=== PATIENT | male | born 1960 | race Asian ===

== ENCOUNTER 2017-06-17 11:32 | Outpatient (CLI) | payer BC ==
[2017-06-17 12:43] LABS: PLATELET COUNT 188 K/uL (142-355)
[2017-06-17 13:05] LABS: POTASSIUM 3.6 mmol/L (3.6-5.2)
== END 2017-06-17 19:07 | disposition home or self-care (01) ==
LOC: LABW 11:32
PROVIDERS: Internal Medicine
DX: N18.3 Chronic kidney disease, stage 3 (moderate) (principal); R79.89 Other specified abnormal findings of blood chemistry
CPT/HCPCS: 36415; 80053; 81000; 82024; 82043; 82088; 82306; 82330; 82570; 82607; 82746; 83036; 83735; 83835; 83970; 84100; 84155; 84244; 84439; 84443; 84550; 85027; 86430

== ENCOUNTER 2017-12-30 09:03 | Outpatient (CLI) | payer BC | END 2017-12-30 23:47 | disposition home or self-care (01) | LOC: NM 09:03 | DX: K81.9 Cholecystitis, unspecified (principal) | CPT/HCPCS: A9537 ==

== ENCOUNTER 2018-01-02 05:48 | Inpatient (IN) | payer BC ==
[~2018-01-02] VITALS: Ht 188 cm; Wt 101.7 kg
[2018-01-02 05:52] VITALS: BP 116/63; TEMP 98.1
[2018-01-02] MEDS ORDERED: AZOR1 TA1 PO (06:00)
[2018-01-02] MEDS ORDERED: RANI150T78 PO (06:00)
[2018-01-02] MEDS ORDERED: ELIQUIS5 MG PO (06:01)
[2018-01-02] MEDS ORDERED: ZOFRAN ODT4 MG OR (06:02)
[2018-01-02] MEDS ORDERED: LABETALOL200 MG PO (06:03)
[2018-01-02] MEDS ORDERED: CARDIZEM60 MG PO (06:03)
[2018-01-02 07:08] LABS: PLATELET COUNT 168 K/uL (142-355)
[2018-01-02 07:23] LABS: POTASSIUM 4.2 mmol/L (3.6-5.2)
[2018-01-02 08:30] VITALS: BP 120/78
[2018-01-02 10:50] VITALS: BP 125/84
[2018-01-02 16:59] VITALS: BP 146/87; TEMP 98.6; Ht 188 cm; Wt 101.7 kg
[2018-01-02 20:00] VITALS: BP 155/85; TEMP 102.6
[2018-01-03 01:00] VITALS: BP 127/68; TEMP 98.2
[2018-01-03 04:00] VITALS: BP 151/85; TEMP 99.2
[2018-01-03 05:31] LABS: PLATELET COUNT 151 K/uL (142-355)
[2018-01-03 08:01] VITALS: BP 161/82; TEMP 99.8
[2018-01-03 12:06] VITALS: BP 144/88; TEMP 99.5
[2018-01-03 16:00] VITALS: BP 150/90; TEMP 99.8
[2018-01-03 20:05] VITALS: BP 183/106; TEMP 98.4
[2018-01-04] VITALS: BP 153/88; TEMP 98.7
[2018-01-04 04:00] VITALS: BP 170/96; TEMP 98.5
[2018-01-04 08:02] VITALS: BP 165/95; TEMP 98.5
[2018-01-04 12:00] VITALS: BP 158/91; TEMP 98.6
[2018-01-04 15:46] VITALS: BP 159/99; TEMP 98.2
[2018-01-04 20:05] VITALS: BP 151/91; TEMP 99.2
[2018-01-05 00:27] VITALS: BP 167/103; TEMP 98.8
[2018-01-05 04:00] VITALS: BP 173/110; TEMP 98.2
[2018-01-05 08:07] VITALS: BP 157/101; BP 157/161; TEMP 98.1
[2018-01-05 12:00] VITALS: BP 146/91; TEMP 98.6
[2018-01-05 16:00] VITALS: BP 185/92; TEMP 98.5
[2018-01-05 20:00] VITALS: BP 156/97; TEMP 99.3
[2018-01-06] VITALS: BP 170/96; TEMP 99.1
[2018-01-06 04:00] VITALS: BP 161/95; TEMP 98.4
[2018-01-06 08:00] VITALS: BP 164/102; TEMP 98.7
[2018-01-06 12:00] VITALS: BP 132/84; TEMP 98.4
[2018-01-06 14:07] LABS: PLATELET COUNT 246 K/uL (142-355)
[2018-01-06 14:32] LABS: POTASSIUM 4.1 mmol/L (3.6-5.2)
--- NOTE | 2018-01-06 15:38 | NUR ---
1500 DR BRIGHT NOTIFED CONCERNING BLOOD CULTURE RESULTS AND IV THREAPY. PER DR BRIGHT PT STILL NEEDS OUT PT INFUSION PREVIOUSLY INSTRUCTED. PT'S ABX INFUSION COMPLETED. IV DC'D AND ROUTINE SITE CARE GIVEN.
== END 2018-01-06 17:15 | disposition home or self-care (01) | DRG 872 ==
LOC: ED 05:48 → MED/SURG 11:00
PROVIDERS: Internal Medicine; ADMIT Emergency Medicine
DX: A41.89 Other specified sepsis (principal); A04.72 Enterocolitis due to Clostridium difficile, not specified as recurrent; E87.1 Hypo-osmolality and hyponatremia; N18.4 Chronic kidney disease, stage 4 (severe); E86.0 Dehydration; D72.828 Other elevated white blood cell count; I48.91 Unspecified atrial fibrillation; I10 Essential (primary) hypertension; I12.9 Hypertensive chronic kidney disease with stage 1 through stage 4 chronic kidney disease, or unspecified chronic kidney disease; D64.89 Other specified anemias
CPT/HCPCS: 36415; 80053; 81000; 85027; 87015; 87040; 87045; 87077; 87186; 87205; 87324; 87328; 87329; 87449; 87899; 96360; 96361; 99284; J0696; J1956; J2185

== ENCOUNTER 2018-01-06 21:08 | Outpatient (CLI) | payer BC ==
[~2018-01-06 21:08] MED LIST: AZOR1 TA1 PO; CARDIZEM60 MG PO; ELIQUIS5 MG PO; LABETALOL200 MG PO; RANI150T78 PO; ZOFRAN ODT4 MG OR
== END 2018-01-06 23:35 | disposition home or self-care (01) ==
LOC: INF 21:08
DX: J15.0 Pneumonia due to Klebsiella pneumoniae (principal)
CPT/HCPCS: 96365

== ENCOUNTER 2018-01-07 08:07 | Outpatient (CLI) | payer BC ==
[~2018-01-07] VITALS: Ht 188 cm; Wt 100.7 kg
== END 2018-01-07 19:23 | disposition home or self-care (01) ==
LOC: INF 08:07
DX: J15.0 Pneumonia due to Klebsiella pneumoniae (principal); N17.9 Acute kidney failure, unspecified
CPT/HCPCS: 96365; 96366; J2185

== ENCOUNTER 2018-01-08 08:24 | Outpatient (CLI) | payer BC | END 2018-01-08 23:17 | disposition home or self-care (01) | LOC: INF 08:24 | DX: J15.0 Pneumonia due to Klebsiella pneumoniae (principal); N17.9 Acute kidney failure, unspecified | CPT/HCPCS: 96365; 96366; J2185 ==

== ENCOUNTER 2018-01-09 07:41 | Outpatient (CLI) | payer BC | END 2018-01-09 23:23 | disposition home or self-care (01) | LOC: INF 07:41 | DX: J15.0 Pneumonia due to Klebsiella pneumoniae (principal); N17.9 Acute kidney failure, unspecified | CPT/HCPCS: 96365; 96366; J2185 ==

== ENCOUNTER 2018-01-10 07:50 | Outpatient (CLI) | payer BC | END 2018-01-10 23:20 | disposition home or self-care (01) | LOC: INF 07:50 | DX: J15.0 Pneumonia due to Klebsiella pneumoniae (principal); N17.9 Acute kidney failure, unspecified | CPT/HCPCS: 96365; 96366; J2185 ==

== ENCOUNTER 2018-09-03 16:24 | Outpatient (CLI) | payer BC | END 2018-09-03 19:44 | disposition home or self-care (01) | LOC: LABW 16:24 | DX: R19.7 Diarrhea, unspecified (principal) | CPT/HCPCS: 87015; 87045; 87324; 87449; 87899 ==

== ENCOUNTER 2019-01-25 05:39 | Inpatient (IN) | payer BC ==
[2019-01-25] VITALS (11 sets, daily range): BP systolic 138–192; BP diastolic 82–104; TEMP 97.8–101; Ht 188 cm; Wt 112.9 kg
[~2019-01-25] VITALS: Ht 188 cm; Wt 112.9 kg
[2019-01-25] MEDS ORDERED: ONDA4TAB3 PO (05:59)
[2019-01-25] MEDS ORDERED: METR250T19 PO (06:00)
[2019-01-25] MEDS ORDERED: VANCOMYCIN500 MG PO (06:00)
[2019-01-25 06:26] LABS: PLATELET COUNT 299 K/uL (142-355)
[2019-01-25 06:41] LABS: SODIUM 134 mmol/L (136-145)
[2019-01-25 07:07] LABS: PARTIAL THROMBOPLASTIN TIME 38.1 SECONDS (24.5-33.6)
[2019-01-26 04:00] VITALS: BP 162/100; TEMP 98.3
[2019-01-26 05:13] LABS: PLATELET COUNT 314 K/uL (142-355)
[2019-01-26 05:25] LABS: POTASSIUM 3.6 mmol/L (3.6-5.2)
[2019-01-26 08:00] VITALS: BP 179/110; TEMP 98.5
[2019-01-26 12:00] VITALS: BP 124/85; TEMP 98.4
[2019-01-26 16:00] VITALS: BP 151/93; TEMP 98.3
[2019-01-26 20:00] VITALS: BP 171/103; TEMP 98.3
[2019-01-26 23:59] LABS: PLATELET COUNT 400 K/uL (142-355)
[2019-01-27] VITALS: BP 174/99; TEMP 101.3
[2019-01-27 00:26] LABS: POTASSIUM 4.7 mmol/L (3.6-5.2)
[2019-01-27 04:00] VITALS: BP 152/97; TEMP 98.1
[2019-01-27 08:00] VITALS: BP 155/84; TEMP 98
== END 2019-01-27 19:33 | disposition home or self-care (01) | DRG 683 ==
LOC: ED 05:39 → MED/SURG 07:00
PROVIDERS: Hospitalist; ADMIT Internal Medicine
DX: N17.8 Other acute kidney failure (principal); A04.72 Enterocolitis due to Clostridium difficile, not specified as recurrent; J98.11 Atelectasis; Q61.3 Polycystic kidney, unspecified; I13.0 Hypertensive heart and chronic kidney disease with heart failure and stage 1 through stage 4 chronic kidney disease, or unspecified chronic kidney disease; D72.828 Other elevated white blood cell count; N18.3 Chronic kidney disease, stage 3 (moderate); I48.2 Chronic atrial fibrillation; Z79.01 Long term (current) use of anticoagulants; I50.9 Heart failure, unspecified
CPT/HCPCS: 36415; 36600; 80048; 80053; 82550; 82805; 83880; 84484; 85027; 85379; 85610; 85730; 87040; 87502; 87651; 87899; 93005; 94640; 94664; 94760; 96360; 96361; 96365; 96366; 96367; 96372; 99284; J1956; A9540; A9567; J0456; J1650; J1940; J3370

== ENCOUNTER 2019-02-10 09:59 | Outpatient (CLI) | payer BC ==
[~2019-02-10 09:59] MED LIST changes: +METR250T19 PO; +ONDA4TAB3 PO; +VANCOMYCIN500 MG PO
== END 2019-02-10 22:55 | disposition home or self-care (01) ==
LOC: RESP 09:59
DX: R05 Cough (principal); I10 Essential (primary) hypertension; R06.02 Shortness of breath; Q61.3 Polycystic kidney, unspecified
CPT/HCPCS: 93306

== ENCOUNTER 2019-02-25 12:54 | Outpatient (CLI) | payer BC | END 2019-02-25 23:31 | disposition home or self-care (01) | LOC: NM 12:54 | DX: R10.13 Epigastric pain (principal) | CPT/HCPCS: A9537 ==

== ENCOUNTER 2019-03-04 11:00 | Outpatient (CLI) | payer BC ==
[2019-03-04 11:34] LABS: POTASSIUM 3.8 mmol/L (3.6-5.2)
== END 2019-03-04 20:38 | disposition home or self-care (01) ==
LOC: LABW 11:00
PROVIDERS: Internal Medicine
DX: N18.3 Chronic kidney disease, stage 3 (moderate) (principal)
CPT/HCPCS: 36415; 80053; 81000; 82306; 82330; 82570; 83735; 83970; 84100; 84155; 85027

== ENCOUNTER 2019-03-15 15:52 | Outpatient (CLI) | payer BC ==
[2019-03-15 16:09] LABS: PLATELET COUNT 196 K/uL (142-355)
== END 2019-03-15 19:19 | disposition home or self-care (01) ==
LOC: LAB 15:52
PROVIDERS: Internal Medicine
DX: N18.3 Chronic kidney disease, stage 3 (moderate) (principal)
CPT/HCPCS: 85027

== ENCOUNTER 2019-06-28 04:21 | Emergency (ER) | payer BC ==
[~2019-06-28] VITALS: Ht 188 cm; Wt 112.9 kg
[2019-06-28 05:44] LABS: PLATELET COUNT 168 K/uL (142-355)
[2019-06-28 05:53] LABS: POTASSIUM 3.4 mmol/L (3.6-5.2)
[2019-06-28 06:05] VITALS: BP 148/94; TEMP 98.8
== END 2019-06-28 06:05 | disposition home or self-care (01) ==
LOC: ED 04:21
PROVIDERS: Hospitalist
DX: J40 Bronchitis, not specified as acute or chronic (principal)
CPT/HCPCS: 36415; 80048; 85027; 87502; 87651; 99282; 99283

== ENCOUNTER 2019-09-14 10:01 | Outpatient (CLI) | payer BC ==
[2019-09-14 10:46] LABS: PLATELET COUNT 133 K/uL (142-355)
[2019-09-14 11:04] LABS: POTASSIUM 3.6 mmol/L (3.6-5.2)
== END 2019-09-14 22:22 | disposition home or self-care (01) ==
LOC: LABW 10:01
PROVIDERS: Internal Medicine
DX: I12.9 Hypertensive chronic kidney disease with stage 1 through stage 4 chronic kidney disease, or unspecified chronic kidney disease (principal); N18.3 Chronic kidney disease, stage 3 (moderate)
CPT/HCPCS: 36415; 80053; 81000; 82024; 82088; 82306; 82330; 82533; 82570; 83735; 83835; 83970; 84100; 84155; 84244; 84436; 84443; 85027

== ENCOUNTER 2020-02-17 08:32 | Outpatient (CLI) | payer BC | END 2020-02-17 22:13 | disposition home or self-care (01) | LOC: US 08:32 | DX: R10.13 Epigastric pain (principal); R10.9 Unspecified abdominal pain; R19.00 Intra-abdominal and pelvic swelling, mass and lump, unspecified site ==

== ENCOUNTER 2020-03-07 08:53 | Outpatient (CLI) | payer BC | END 2020-03-07 23:30 | disposition home or self-care (01) | LOC: CT 08:53 | DX: R10.13 Epigastric pain (principal); K52.9 Noninfective gastroenteritis and colitis, unspecified; K21.9 Gastro-esophageal reflux disease without esophagitis | CPT/HCPCS: 36415; 82565; 84520 ==

== ENCOUNTER 2020-03-31 08:58 | Outpatient (CLI) | payer BC ==
[2020-03-31 09:26] LABS: PLATELET COUNT 266 K/uL (142-355)
== END 2020-03-31 19:32 | disposition home or self-care (01) ==
LOC: LABW 08:58
PROVIDERS: ATTEND Internal Medicine Gastroenterology
DX: R93.2 Abnormal findings on diagnostic imaging of liver and biliary tract (principal)
CPT/HCPCS: 36415; 80053; 80074; 82103; 82172; 82247; 82248; 82390; 82465; 82525; 82728; 82947; 82977; 83010; 83516; 83540; 83550; 83883; 84450; 84460; 84466; 84478; 85027; 85610; 86038

== ENCOUNTER 2020-05-16 12:18 | Outpatient (CLI) | payer BC ==
[2020-05-16 12:48] LABS: PLATELET COUNT 426 K/uL (142-355)
[2020-05-16 13:08] LABS: POTASSIUM 4.2 mmol/L (3.6-5.2)
== END 2020-05-16 21:56 | disposition home or self-care (01) ==
LOC: LABW 12:18
PROVIDERS: ATTEND Nurse Practitioner
DX: N18.30 Chronic kidney disease, stage 3 unspecified (principal)
CPT/HCPCS: 36415; 80053; 81000; 82306; 82330; 82570; 83735; 83970; 84100; 84155; 85027

== ENCOUNTER 2020-07-12 10:11 | Outpatient (CLI) | payer BC, OTHER | END 2020-07-12 19:54 | disposition home or self-care (01) | LOC: INF 10:11 | PROVIDERS: ATTEND Internal Medicine | DX: Z23 Encounter for immunization (principal) | CPT/HCPCS: 96372 ==

== ENCOUNTER 2020-08-01 11:01 | Outpatient (CLI) | payer BC, OTHER | END 2020-08-01 21:14 | disposition home or self-care (01) | LOC: INF 11:01 | PROVIDERS: ATTEND Internal Medicine | DX: Z23 Encounter for immunization (principal) | CPT/HCPCS: 96372 ==

== ENCOUNTER 2020-08-02 10:46 | Outpatient (CLI) | payer BC ==
[2020-08-02 11:04] LABS: PLATELET COUNT 229 K/uL (142-355)
[2020-08-02 11:17] LABS: POTASSIUM 3.9 mmol/L (3.6-5.2)
== END 2020-08-02 22:42 | disposition home or self-care (01) ==
LOC: LABW 10:46
PROVIDERS: ATTEND Internal Medicine Gastroenterology
DX: K76.0 Fatty (change of) liver, not elsewhere classified (principal)
CPT/HCPCS: 36415; 80053; 85027

== ENCOUNTER 2020-11-09 13:31 | Outpatient (CLI) | payer BC ==
[2020-11-09 13:58] LABS: PLATELET COUNT 489 K/uL (142-355)
[2020-11-09 14:20] LABS: POTASSIUM 4.7 mmol/L (3.6-5.2)
== END 2020-11-09 19:49 | disposition home or self-care (01) ==
LOC: LABW 13:31
PROVIDERS: ATTEND Internal Medicine Gastroenterology
DX: K76.0 Fatty (change of) liver, not elsewhere classified (principal)
CPT/HCPCS: 36415; 80053; 85027

== ENCOUNTER 2020-11-17 11:34 | Outpatient (CLI) | payer BC | END 2020-11-17 22:51 | disposition home or self-care (01) | LOC: LABW 11:34 | PROVIDERS: ATTEND Internal Medicine Gastroenterology | DX: D50.9 Iron deficiency anemia, unspecified (principal) | CPT/HCPCS: 36415; 82728; 82746; 83540; 83550; 85044 ==

== ENCOUNTER 2020-11-29 10:17 | Day surgery (SDC) | payer BC ==
[~2020-11-29] VITALS: Ht 30.5 cm; Wt 0.5 kg
== END 2020-11-29 12:24 | disposition home or self-care (01) ==
LOC: OR 10:17
PROVIDERS: ATTEND Internal Medicine Gastroenterology
PROC: 0DJD8ZZ Inspection of Lower Intestinal Tract, Via Natural or Artificial Opening Endoscopic (ICD-10-PCS; principal; 2020-11-29)
DX: K57.30 Diverticulosis of large intestine without perforation or abscess without bleeding (principal); K64.8 Other hemorrhoids; D50.8 Other iron deficiency anemias; Z12.11 Encounter for screening for malignant neoplasm of colon; R10.84 Generalized abdominal pain; Z20.822 Contact with and (suspected) exposure to COVID-19
CPT/HCPCS: 87635; J2001; J2704; U0003

== ENCOUNTER → 2020-12-14 | Outpatient (CLI) | payer BC ==
[2020-12-14 14:06] LABS: PLATELET COUNT 419 K/uL (142-355)
[2020-12-14 14:13] LABS: POTASSIUM 3.8 mmol/L (3.6-5.2)
== END ==
LOC: LABW 13:30 → OR 13:30 → EDSTATUS 12-20 15:00
PROVIDERS: ATTEND Internal Medicine Gastroenterology
DX: D50.9 Iron deficiency anemia, unspecified (principal); K21.9 Gastro-esophageal reflux disease without esophagitis; R11.0 Nausea; Z01.812 Encounter for preprocedural laboratory examination
CPT/HCPCS: 80053; 85027; 87635; U0003

== ENCOUNTER 2021-03-21 10:15 | Outpatient (CLI) | payer BC ==
[2021-03-21 11:12] LABS: PLATELET COUNT 222 K/uL (142-355)
[2021-03-21 11:38] LABS: POTASSIUM 4.2 mmol/L (3.6-5.2)
== END 2021-03-21 20:38 | disposition home or self-care (01) ==
LOC: LABW 10:15
PROVIDERS: ATTEND Internal Medicine
DX: N18.30 Chronic kidney disease, stage 3 unspecified (principal); D50.9 Iron deficiency anemia, unspecified
CPT/HCPCS: 36415; 80053; 81000; 82043; 82306; 82330; 82570; 82607; 82728; 82746; 83540; 83550; 83735; 83970; 84100; 85027

== ENCOUNTER 2021-03-22 16:53 | Inpatient (IN) | payer BC ==
[~2021-03-22] VITALS: Ht 188 cm; Wt 107.6 kg
[2021-03-22 17:07] VITALS: BP 96/54; TEMP 100.8
[2021-03-22 17:59] LABS: PLATELET COUNT 192 K/uL (142-355)
[2021-03-22 18:09] LABS: PARTIAL THROMBOPLASTIN TIME 60.8 SECONDS (24.5-33.6); POTASSIUM 4.3 mmol/L (3.6-5.2)
[2021-03-23] VITALS (8 sets, daily range): BP systolic 111–158; BP diastolic 59–90; TEMP 98.9–100.9; Ht 188 cm; Wt 107.6 kg
[2021-03-23 04:19] LABS: PLATELET COUNT 153 K/uL (142-355)
[2021-03-23 04:21] LABS: POTASSIUM 4.4 mmol/L (3.6-5.2)
[2021-03-23] MEDS ORDERED: DILT-XR240 MG PO (09:49)
[2021-03-23] MEDS ORDERED: MONTELUKAST SOD10 MG PO (09:50)
[2021-03-23] MEDS ORDERED: FLUTICASON50 MCG/AC1 NAS (09:52)
[2021-03-23] MEDS ORDERED: FERROUS SULF325 MG PO (09:53)
[2021-03-23] MEDS ORDERED: DOK100 MG PO (09:53)
[2021-03-24] VITALS (7 sets, daily range): BP systolic 138–189; BP diastolic 76–100; TEMP 98.4–100.9
[2021-03-24 09:11] LABS: PLATELET COUNT 207 K/uL (142-355)
[2021-03-25 04:03] VITALS: BP 123/69; TEMP 99.4
[2021-03-25 04:54] LABS: PLATELET COUNT 213 K/uL (142-355)
[2021-03-25 05:00] LABS: POTASSIUM 4.2 mmol/L (3.6-5.2)
[2021-03-25 08:00] VITALS: BP 125/77; TEMP 98.5
[2021-03-25 12:00] VITALS: BP 135/73; TEMP 98.3
[2021-03-25 16:00] VITALS: BP 130/58; TEMP 99.6
[2021-03-25 20:00] VITALS: BP 134/73; TEMP 98.6
[2021-03-26] VITALS: BP 147/76; TEMP 100.1
[2021-03-26 04:00] VITALS: BP 123/60; TEMP 98.7
[2021-03-26 04:45] LABS: PLATELET COUNT 253 K/uL (142-355)
[2021-03-26 05:25] LABS: POTASSIUM 4.2 mmol/L (3.6-5.2)
[2021-03-26 08:00] VITALS: BP 135/80; TEMP 97.9
== END 2021-03-26 14:30 | disposition home or self-care (01) | DRG 683 ==
LOC: ED 16:53 → MED/SURG 21:27
PROVIDERS: ADMIT Emergency Medicine; ATTEND Internal Medicine Endocrinology, Diabetes & Metabolism
DX: I12.9 Hypertensive chronic kidney disease with stage 1 through stage 4 chronic kidney disease, or unspecified chronic kidney disease (principal); N17.8 Other acute kidney failure; Q61.3 Polycystic kidney, unspecified; E87.1 Hypo-osmolality and hyponatremia; N18.30 Chronic kidney disease, stage 3 unspecified; I48.91 Unspecified atrial fibrillation; K21.9 Gastro-esophageal reflux disease without esophagitis; R13.19 Other dysphagia; J32.8 Other chronic sinusitis; D64.89 Other specified anemias; R80.8 Other proteinuria
CPT/HCPCS: 36415; 80048; 80053; 81000; 82172; 82247; 82570; 82977; 83010; 83516; 83880; 83883; 84155; 84165; 84300; 84460; 84484; 85027; 85610; 85730; 86038; 86160; 86255; 86592; 87040; 87205; 87516; 87535; 87635; 93005; 94760; 96360; 99284; G0432; U0003

== ENCOUNTER 2021-05-17 10:53 | Outpatient (CLI) | payer BC ==
[~2021-05-17 10:53] MED LIST changes: +DILT-XR240 MG PO; +DOK100 MG PO; +FERROUS SULF325 MG PO; +FLUTICASON50 MCG/AC1 NAS; +MONTELUKAST SOD10 MG PO
[2021-05-17 11:10] LABS: PLATELET COUNT 408 K/uL (142-355)
[2021-05-17 11:18] LABS: POTASSIUM 4.8 mmol/L (3.6-5.2)
== END 2021-05-17 19:10 | disposition home or self-care (01) ==
LOC: LABW 10:53
PROVIDERS: ATTEND Internal Medicine Gastroenterology
DX: D50.9 Iron deficiency anemia, unspecified (principal)
CPT/HCPCS: 36415; 80053; 85027

== ENCOUNTER 2021-05-28 10:00 | Outpatient (CLI) | payer BC ==
[2021-05-28 10:19] LABS: PLATELET COUNT 155 K/uL (142-355)
[2021-05-28 10:48] LABS: POTASSIUM 4.1 mmol/L (3.6-5.2)
== END 2021-05-28 20:55 | disposition home or self-care (01) ==
LOC: LABW 10:00
PROVIDERS: ATTEND Internal Medicine
DX: N18.30 Chronic kidney disease, stage 3 unspecified (principal); D50.9 Iron deficiency anemia, unspecified
CPT/HCPCS: 36415; 80053; 81000; 82306; 82330; 82570; 82607; 82728; 82746; 83540; 83550; 83735; 83970; 84100; 84155; 85027

== ENCOUNTER 2021-09-06 15:05 | Outpatient (CLI) | payer BC ==
[2021-09-06 15:39] LABS: PLATELET COUNT 134 K/uL (142-355)
[2021-09-06 16:02] LABS: POTASSIUM 3.7 mmol/L (3.6-5.2)
== END 2021-09-06 19:37 | disposition home or self-care (01) ==
LOC: LABW 15:05
PROVIDERS: ATTEND Internal Medicine
DX: N18.30 Chronic kidney disease, stage 3 unspecified (principal); D64.9 Anemia, unspecified
CPT/HCPCS: 36415; 80053; 81000; 82043; 82306; 82570; 82607; 82728; 82746; 83540; 83550; 83735; 83970; 84100; 84156; 85027

== ENCOUNTER 2021-11-22 07:47 | Outpatient (CLI) | payer BC ==
[~2021-11-22] VITALS: Ht 188 cm; Wt 104.8 kg
== END 2021-11-22 19:03 | disposition home or self-care (01) ==
LOC: NM 07:47
PROVIDERS: ATTEND Nurse Practitioner
DX: I48.0 Paroxysmal atrial fibrillation (principal)
CPT/HCPCS: A9500; J2785

== ENCOUNTER 2022-02-28 08:44 | Outpatient (CLI) | payer BC ==
[2022-02-28 09:38] LABS: PLATELET COUNT 249 K/uL (142-355)
[2022-02-28 10:42] LABS: POTASSIUM 3.7 mmol/L (3.6-5.2)
== END 2022-02-28 23:08 | disposition home or self-care (01) ==
LOC: LABW 08:44
PROVIDERS: ATTEND Internal Medicine
DX: N18.30 Chronic kidney disease, stage 3 unspecified (principal); D50.8 Other iron deficiency anemias; E53.8 Deficiency of other specified B group vitamins
CPT/HCPCS: 36415; 80053; 81002; 82306; 82330; 82570; 82607; 82728; 82746; 83540; 83550; 83735; 83970; 84100; 84156; 85027

== ENCOUNTER 2022-04-16 13:11 | Outpatient (CLI) | payer BC | END 2022-04-16 19:21 | disposition home or self-care (01) | LOC: LABW 13:11 | PROVIDERS: ATTEND Nurse Practitioner Family | DX: R11.2 Nausea with vomiting, unspecified (principal); R19.7 Diarrhea, unspecified | CPT/HCPCS: 82272; 83630; 87015; 87045; 87324; 87328; 87329; 87338; 87449; 87899 ==

== ENCOUNTER 2022-07-11 12:31 | Outpatient (CLI) | payer BC ==
[2022-07-11 13:27] LABS: PLATELET COUNT 299 K/uL (142-355)
[2022-07-11 13:49] LABS: POTASSIUM 3.8 mmol/L (3.6-5.2)
== END 2022-07-11 17:00 | disposition home or self-care (01) ==
LOC: LABW 12:31
PROVIDERS: ATTEND Internal Medicine Cardiovascular Disease
DX: N18.30 Chronic kidney disease, stage 3 unspecified (principal); D50.8 Other iron deficiency anemias; I50.9 Heart failure, unspecified; Z79.899 Other long term (current) drug therapy
CPT/HCPCS: 36415; 80053; 81002; 82306; 82330; 82570; 82607; 82728; 82746; 83540; 83550; 83735; 83880; 83970; 84100; 84156; 85027

== ENCOUNTER → 2022-07-19 | Outpatient (CLI) | payer BC | LOC: LABW 10:54 | PROVIDERS: ATTEND Nurse Practitioner Family | DX: R79.89 Other specified abnormal findings of blood chemistry (principal); N18.30 Chronic kidney disease, stage 3 unspecified; I25.10 Atherosclerotic heart disease of native coronary artery without angina pectoris; I12.9 Hypertensive chronic kidney disease with stage 1 through stage 4 chronic kidney disease, or unspecified chronic kidney disease | CPT/HCPCS: 36415; 83880 ==

== ENCOUNTER 2022-09-06 09:27 | Emergency (ER) | payer BC ==
[~2022-09-06] VITALS: Ht 188 cm; Wt 95.3 kg
[2022-09-06 12:00] VITALS: BP 115/71; TEMP 98.1
== END 2022-09-06 12:00 | disposition home or self-care (01) ==
LOC: ED 09:27
DX: M25.061 Hemarthrosis, right knee (principal); W19.XXXA Unspecified fall, initial encounter
CPT/HCPCS: 96372; 99283; J1885